=== PATIENT | male | born 1955 | race Caucasian/White ===

== ENCOUNTER 2018-01-27 08:45 | Inpatient (IN) | payer BC ==
[~2018-01-27] VITALS: Ht 185.4 cm; Wt 150.5 kg
[2018-01-27 09:27] LABS: BASOPHIL (%) 0.4 % (0-1); EOSINOPHIL (%) 1.2 % (0-5); EOSINOPHIL COUNT 0.1 K/uL (0-0.3); HEMATOCRIT 39.5 % (38.0-50.0); HEMOGLOBIN 13.1 G/DL (12.5-16.6); IMMATURE GRANULOCYTE (%) 0.5 % (0.0-0.7); LYMPHOCYTE (%) 14.6 % (15-42); LYMPHOCYTE COUNT 1.5 K/uL (1.0-2.8); MCH 29.3 PG (29.0-34.0); MCHC 33.2 G/DL (30.0-36.0); MCV 88.4 FL (86-99); MONOCYTE (%) 9.2 % (3-12); MONOCYTE COUNT 0.9 K/uL (0-0.8); NEUTROPHIL (%) 74.1 % (45-76); NEUTROPHIL COUNT 7.6 K/uL (1.8-6.4); PLATELET COUNT 210 K/uL (156-360); RBC DIS.WIDTH-CV 13.2 % (11.8-14.6); RBC DIS.WIDTH-SD 42.9 % (39-53); RED BLOOD COUNT 4.47 M/uL (4.00-5.50); WHITE BLOOD COUNT 10.2 K/uL (4.1-10.2)
[2018-01-27 09:37] LABS: CHLORIDE 104 mEq/L (99-109); POTASSIUM 4.2 mEq/L (3.7-5.4); SODIUM 137 mEq/L (136-147)
[2018-01-27 09:38] LABS: GLUCOSE 166 mg/dL (70-99)
[2018-01-27 09:42] LABS: GFR ESTIMATE (CALCULATED) > 59 mL/min/ (58.99-99999)
[2018-01-27 09:43] LABS: UREA NITROGEN (BUN) 16 mg/dL (9-23)
[2018-01-27 09:49] LABS: TROP-I INTERPRETATION NEGATIVE; TROPONIN-I 0.02 ng/mL (0.0-0.30)
[2018-01-27 12:40] LABS: ALBUMIN 3.8 g/dL (3.2-4.8)
[2018-01-27 12:43] LABS: TOTAL PROTEIN 6.5 g/dL (6.4-8.3)
[2018-01-27] MEDS ORDERED: NOVOLOG PE100 UNITS/ SC (12:43)
[2018-01-27] MEDS ORDERED: VALSARTAN320 MG PO (12:44)
[2018-01-27] MEDS ORDERED: PRAVACHOL40 MG PO (12:44)
[2018-01-27 12:45] LABS: TOTAL BILIRUBIN 1.1 mg/dL (0.0-1.0)
[2018-01-27] MEDS ORDERED: METFORMIN HCL1000 MG PO (12:45)
[2018-01-27] MEDS ORDERED: ADVIL200 MG PO (12:45)
[2018-01-27 12:46] LABS: ALKALINE PHOSPHATASE 73 IU/L (3-129)
[2018-01-27] MEDS ORDERED: VICTOZA 2-0.6 MG/0.1 SC (12:46)
[2018-01-27] MEDS ORDERED: TRESIBA FL100 UNIT/1 SC (12:46)
[2018-01-27] MEDS ORDERED: CLARITIN10 MG PO (12:46)
[2018-01-27] MEDS ORDERED: VITAMIN E100 UNIT PO (12:47)
[2018-01-27] MEDS ORDERED: VITAMIN B122500 MCG PO (12:47)
[2018-01-27] MEDS ORDERED: VITAMIN D2000 UNI1 PO (12:47)
[2018-01-27] MEDS ORDERED: CENTRUM COMPLE1 EACH PO (12:48)
[2018-01-27] MEDS ORDERED: FISH OIL 1,0001 EAC7 PO (12:49)
[2018-01-27] MEDS ORDERED: ADVIL PM1 TABLET PO (12:50)
[2018-01-27 12:59] LABS: ALT (GPT) 22 IU/L (3-49); AST (GOT) 21 IU/L (2-34); DIRECT BILIRUBIN 0.5 mg/dL (0.0-0.3)
[2018-01-27 16:50] VITALS: BP 157/101
[2018-01-27 19:52] VITALS: BP 139/93
[2018-01-28] VITALS (7 sets, daily range): BP systolic 117–157; BP diastolic 83–104
[2018-01-28 05:49] LABS: CHLORIDE 101 MEQ/L (99-109); GFR ESTIMATE (CALCULATED) > 59 mL/min/ (58.99-99999); HDL CHOLESTEROL 22 MG/DL (Desirable>=40); LDL CHOLESTEROL 44 mg/dL (Desirable<100); NON-HDL CHOLESTEROL 55 mg/dL (Desirable<160); POTASSIUM 4.5 MEQ/L (3.7-5.4); SODIUM 137 MEQ/L (136-147); TOTAL CHOLESTEROL 77 mg/dL (Desirable<200); TRIGLYCERIDES 56 MG/DL (Normal: <150); UREA NITROGEN (BUN) 17 mg/dL (9-23)
[2018-01-28 06:16] LABS: GLUCOSE 117 mg/dL (70-99)
[2018-01-28 07:07] LABS: TROP-I INTERPRETATION NEGATIVE; TROPONIN-I 0.03 ng/mL (0.0-0.30)
[2018-01-28 09:58] LABS: HEMOGLOBIN A1c (GLYCOHEMOGLOB) 6.3 % (Below 5.7)
[2018-01-28 16:06] LABS: INTER. NORMALIZED RATIO 1.2
[2018-01-29 04:30] VITALS: BP 130/85
[2018-01-29 05:59] LABS: INTER. NORMALIZED RATIO 1.2
[2018-01-29 06:12] LABS: CHLORIDE 98 MEQ/L (99-109); CREATININE 1.1 MG/DL (0.6-1.3); GFR ESTIMATE (CALCULATED) > 59 mL/min/ (58.99-99999); GLUCOSE 117 mg/dL (70-99); POTASSIUM 4.2 MEQ/L (3.7-5.4); SODIUM 138 MEQ/L (136-147); UREA NITROGEN (BUN) 19 mg/dL (9-23)
[2018-01-29 08:50] VITALS: BP 142/92
[2018-01-29 11:56] VITALS: BP 134/83
[2018-01-29 16:35] VITALS: BP 144/85
[2018-01-29 19:00] VITALS: BP 131/80
[2018-01-29 23:55] VITALS: BP 128/79
[2018-01-30 04:31] VITALS: BP 128/85
[2018-01-30 05:45] LABS: INTER. NORMALIZED RATIO 1.3
[2018-01-30 06:08] LABS: CHLORIDE 97 MEQ/L (99-109); CREATININE 1.1 MG/DL (0.6-1.3); GFR ESTIMATE (CALCULATED) > 59 mL/min/ (58.99-99999); GLUCOSE 121 mg/dL (70-99); POTASSIUM 3.9 MEQ/L (3.7-5.4); SODIUM 137 MEQ/L (136-147); UREA NITROGEN (BUN) 22 mg/dL (9-23)
[2018-01-30 07:58] VITALS: BP 121/86
[2018-01-30 12:10] VITALS: BP 125/82
[2018-01-30 15:07] VITALS: BP 134/80
[2018-01-30 21:00] VITALS: BP 145/81
[2018-01-30 23:15] VITALS: BP 128/85
[2018-01-31 05:03] VITALS: BP 132/80
[2018-01-31 05:15] LABS: INTER. NORMALIZED RATIO 1.3
[2018-01-31 05:38] LABS: CHLORIDE 95 MEQ/L (99-109); GFR ESTIMATE (CALCULATED) > 59 mL/min/ (58.99-99999); GLUCOSE 122 mg/dL (70-99); SODIUM 137 MEQ/L (136-147); UREA NITROGEN (BUN) 24 mg/dL (9-23)
[2018-01-31 08:30] VITALS: BP 130/89
[2018-01-31] MEDS ORDERED: ENTRESTO 24 MG1 EACH PO (11:28)
[2018-01-31] MEDS ORDERED: CORDARONE200 MG PO (11:28)
[2018-01-31] MEDS ORDERED: ASPIR-LOW81 MG PO (11:28)
[2018-01-31] MEDS ORDERED: DIGOXIN125 MCG PO (11:28)
[2018-01-31] MEDS ORDERED: TRAMADOL HCL50 MG PO (11:28)
[2018-01-31] MEDS ORDERED: LOVENOX150 MG/1 M SC (11:28)
[2018-01-31] MEDS ORDERED: LOPRESSOR100 M1 PO (11:28)
[2018-01-31 11:40] VITALS: BP 116/69
[2018-01-31] MEDS ORDERED: COUMADIN10 MG PO (13:21)
[2018-01-31] MEDS ORDERED: COUMADIN7.5 MG PO ×2 (13:21→14:07)
[2018-01-31] MEDS ORDERED: LASIX40 MG PO (13:21)
[2018-01-31 19:17] VITALS: BP 127/66
[2018-01-31 23:14] VITALS: BP 121/75
[2018-02-01 04:43] VITALS: BP 112/76
[2018-02-01 05:51] LABS: INTER. NORMALIZED RATIO 1.3
[2018-02-01 07:58] VITALS: BP 142/73
[2018-02-01 11:32] VITALS: BP 125/81
[2018-02-01 15:01] VITALS: BP 119/72
[2018-02-01 19:28] VITALS: BP 126/70
[2018-02-01 23:43] VITALS: BP 116/69
[2018-02-02 04:46] VITALS: BP 117/72
[2018-02-02 05:39] LABS: INTER. NORMALIZED RATIO 1.4
[2018-02-02 05:58] LABS: CHLORIDE 95 MEQ/L (99-109); CREATININE 1.3 MG/DL (0.6-1.3); GFR ESTIMATE (CALCULATED) > 59 mL/min/ (58.99-99999); GLUCOSE 139 mg/dL (70-99); SODIUM 134 MEQ/L (136-147); UREA NITROGEN (BUN) 27 mg/dL (9-23)
[2018-02-02 07:19] VITALS: BP 149/85
[2018-02-02] MEDS ORDERED: LOVENOX150 MG/1 M SC (09:27)
[2018-02-02] MEDS ORDERED: FUROSEMIDE80 MG PO (09:28)
[2018-02-02] MEDS ORDERED: FUROSEMIDE40 MG PO (09:28)
[2018-02-02] MEDS ORDERED: COUMADIN5 MG PO (09:29)
== END 2018-02-02 12:13 | DRG 292 ==
LOC: EME 08:45 → EDOF 12:16 → ENRESERV 12:18 → 4EAST 12:43 → EDOF 12:43 → ENRESERV 12:45 → 4EAST 16:46 → ENRESERV 01-31 20:32 → CANRESERV 01-31 20:57 → ENRESERV 01-31 20:57 → 4EAST 02-02 12:13
PROVIDERS: Emergency Medicine; Family Medicine; Internal Medicine; Physician Assistant Medical
DX: I11.0 Hypertensive heart disease with heart failure (principal); I50.21 Acute systolic (congestive) heart failure; I48.92 Unspecified atrial flutter; I27.20 Pulmonary hypertension, unspecified; I07.1 Rheumatic tricuspid insufficiency; I47.1 Supraventricular tachycardia; I42.9 Cardiomyopathy, unspecified; I49.3 Ventricular premature depolarization; E11.9 Type 2 diabetes mellitus without complications; E78.5 Hyperlipidemia, unspecified; M19.90 Unspecified osteoarthritis, unspecified site; F17.210 Nicotine dependence, cigarettes, uncomplicated; E66.01 Morbid (severe) obesity due to excess calories; Z68.41 Body mass index [BMI] 40.0-44.9, adult; Z79.4 Long term (current) use of insulin
CPT/HCPCS: 71045; 71275; 80048; 80061; 80076; 82948; 83036; 83880; 84484; 85025; 85379; 85610; 93005; 93306; 94640; 94799; 99281; 99285; J1650; J1815; J1940